=== PATIENT | male | born 1980 | race Caucasian/White ===

== ENCOUNTER 2016-08-23 11:57 | Emergency (ER) | payer MEDICAID ==
[~2016-08-23] VITALS: Ht 165.1 cm; Wt 89.5 kg
[2016-08-23 12:02] VITALS: Ht 165.1 cm; Wt 89.5 kg
[2016-08-23] MEDS ORDERED: AMOX1TAB10 PO (13:29)
[2016-08-23] MEDS ORDERED: IBUP-1542 PO (13:29)
--- NOTE | 2016-08-23 13:44 | ERD ---
ER Documentation Chief Complaint Date/Time DATE: 08/23/16 TIME: 13:41 Chief Complaint B ear pain and ST X 1 week, no meds today. HPI 35-year-old male comes in with bilateral ear pain, sore throat and frontal headaches 1 week. Patient's pain is worse on the left side than the right and it feels as if there is muffling and pressure. He has also noted voice hoarseness with the throat pain. He denies any voice changes, drooling, fevers or chills. For pain he has tried taking Motrin at home. ROS All systems reviewed and are negative except as per history of present illness. Medications Home Meds Active Scripts Ibuprofen* (Motrin*) 600 Mg Tab, 600 MG PO Q6, #30 TAB Prov:NIC FARIAS PA-C 08/23/16 Amoxicillin/Potassium Clav (Amox-Clav 875-125 mg Tablet) 875-125 mg Tab, 1 TAB PO BID for 7 Days, #14 TAB Prov:NIC FARIAS PA-C 08/23/16 Physical Exam Vitals Vital Signs Date Time Temp Pulse Resp B/P Pulse Ox O2 Delivery O2 Flow Rate FiO2 08/23/16 12:02 97.5 96 18 132/71 98 Physical Exam General: Well-developed, well-nourished. The patient appears in no acute distress. HEENT: Head is normocephalic, atraumatic. No scleral icterus. Left ear is erythematous, no perforation, discharge. Right ear is normal. Throat is clear Neck: Supple. Nontender. Lungs: Clear to auscultation. Normal air movement. Heart: Regular rate and rhythm. S1 and S2 are normal. No murmurs, gallops, or rubs. Abdomen: Nondistended. Extremities: No clubbing or cyanosis. Moving extremities x 4. No weakness. Neurologic: Alert and oriented 3. No focal deficits. Normal speech and gait. Skin: Normal turgor. No rash or lesions. Procedures/MDM 35-year-old male comes in with taking of the left ear, sore throat, frontal headache and congestion. Patient will be treated for otitis media as well as sinus infection. No signs of deep space infection, meningitis, pneumonia, hypoxia or respiratory distress. Departure Diagnosis: Primary Impression: Otitis media Condition: Good Patient Instructions: Otitis Media, Abx Tx (Adult) Additional Instructions: Call your primary care doctor TOMORROW for an appointment during the next 1-2 days.See the doctor sooner or return here if your condition worsens before your appointment time. NIC FARIAS PA-C Aug 23, 2016 13:44
[2016-08-24] MEDS ORDERED: PSEU120T51 PO (20:22)
[2016-08-24] MEDS ORDERED: LORA10CA PO (20:22)
[2016-08-24] MEDS ORDERED: OFLO5DRO7 LEFT EAR (20:22)
== END 2016-08-23 13:54 | disposition home or self-care (01) ==
LOC: FTE 11:57
DX: H66.92 Otitis media, unspecified, left ear (principal)
CPT/HCPCS: 99283

== ENCOUNTER 2016-08-24 18:56 | Emergency (ER) | payer MEDICAID ==
[~2016-08-24] VITALS: Ht 172.7 cm; Wt 88.5 kg
[~2016-08-24 18:56] MED LIST: AMOX1TAB10 PO; IBUP-1542 PO
[2016-08-24 19:12] VITALS: Ht 172.7 cm; Wt 88.5 kg
[2016-08-24] MEDS ORDERED: PSEU120T51 PO (20:22)
[2016-08-24] MEDS ORDERED: LORA10CA PO (20:22)
[2016-08-24] MEDS ORDERED: OFLO5DRO7 LEFT EAR (20:22)
--- NOTE | 2016-08-24 20:27 | ERD ---
ER Documentation Chief Complaint Date/Time DATE: 08/24/16 TIME: 20:25 Chief Complaint left ear pain HPI 35-year-old male comes in with left ear pain and decreased hearing that started 2 days ago. Patient states that he is also had congestion and sore throat associated with this, he was seen yesterday and given a prescription for antibiotics as well as Motrin. He states that his pain got better however he has not had any improvement in the hearing. He was seen by me yesterday and started Augmentin. He denies any head injury, fevers or chills. No otorrhea or discharge. He denies neck stiffness or any weakness associated. ROS All systems reviewed and are negative except as per history of present illness. Medications Home Meds Active Scripts Pseudoephedrine Hcl (Sudafed 12 Hour) 120 Mg Tablet.sa, 120 MG PO BID, #6 Prov:NIC FARIAS PA-C 08/24/16 Ofloxacin Otic (Ofloxacin Otic) 5 Ml Drops, 10 DROP LEFT EAR DAILY for 7 Days, # 1 BOTTLE Prov:NIC FARIAS PA-C 08/24/16 Loratadine* (Claritin*) 10 Mg Capsule, 10 MG PO DAILY, #30 CAP Prov:NIC FARIAS PA-C 08/24/16 Ibuprofen* (Motrin*) 600 Mg Tab, 600 MG PO Q6, #30 TAB Prov:NIC FARIAS PA-C 08/23/16 Amoxicillin/Potassium Clav (Amox-Clav 875-125 mg Tablet) 875-125 mg Tab, 1 TAB PO BID for 7 Days, #14 TAB Prov:NIC FARIAS PA-C 08/23/16 Allergies Allergies: Coded Allergies: No Known Allergy (Unverified , 08/24/16) PMhx/Soc Medical and Surgical Hx: pt denies Medical Hx, pt denies Surgical Hx Hx Alcohol Use: No Hx Substance Use: No Hx Tobacco Use: No Smoking Status: Never smoker Physical Exam Vitals Vital Signs Date Time Temp Pulse Resp B/P Pulse Ox O2 Delivery O2 Flow Rate FiO2 08/24/16 19:12 98.6 78 20 138/93 97 Physical Exam General: Well-developed, well-nourished. The patient appears in no acute distress. HEENT: Head is normocephalic, atraumatic. No scleral icterus. Left ear has bulging tympanic membrane, mildly erythematous, the distal ear canal is normal, there is mild amount of cerumen, the proximal portion of the ear canal is erythematous. There is no perforation, otorrhea or discharge, external ears unremarkable, mastoids are nontender, right ear has a bulging TM without erythema. Neck: Supple. Nontender. Lungs: Clear to auscultation. Normal air movement. Heart: Regular rate and rhythm. S1 and S2 are normal. No murmurs, gallops, or rubs. Abdomen: Nondistended. Extremities: No clubbing or cyanosis. Moving extremities x 4. No weakness. Neurologic: Alert and oriented 3. No focal deficits. Normal speech and gait. Skin: Normal turgor. No rash or lesions. Procedures/MDM 35-year-old male comes in with otitis media, as well as congestion. Patient's presentation is a combination of otitis media with serous otitis media will be treated with decongestants. He was asked to follow-up with an ENT specialist outpatient. There are no signs of mastoiditis, deep space infection, neurovascular compromise, shingles, Michael Stark, cellulitis, meningitis. Departure Diagnosis: Primary Impression: Hearing decreased Additional Impression: Serous otitis media Condition: Good Patient Instructions: Otitis Media, Abx Tx (Adult) Referrals: CAITLIN TAM MD Additional Instructions: ENT SPECIALIST: YOU HAVE A MEDICAL CONDITION WHICH REQUIRES YOU TO SEE A SPECIALIST WITHIN THE NEXT 1-2 DAYS. PLEASE FOLLOW UP WITH YOUR PRIMARY PHYSICIAN FOR REFFERAL.IF YOU DO NOT HAVE A PRIMARY CARE PHYSICIAN AND/OR YOU CAN NOT AFFORD TO SEE A PHYSICIAN THE FOLLOWING RESOURCES HAVE BEEN SUPPLIED TO YOU. IT IS YOUR RESPONSIBILITY TO BE SEEN BY THE SPECIALIST NIC FARIAS PA-C Aug 24, 2016 20:27
[2016-08-24 20:29] VITALS: TEMP 98.6
== END 2016-08-24 20:29 | disposition home or self-care (01) ==
LOC: FTE 18:56
DX: H93.8X2 Other specified disorders of left ear (principal); H65.92 Unspecified nonsuppurative otitis media, left ear
CPT/HCPCS: 99283